=== PATIENT | male | born 1950 | race American Indian/Alaskan Native ===

== ENCOUNTER 2017-09-13 10:28 | Emergency (ER) | payer OTHER ==
[2017-09-13 10:37] VITALS: BMI 32.5
[2017-09-13 10:42] VITALS: RESP 18; O2SAT 96
[2017-09-13] MEDS ORDERED: Aspirin 325 mg EC Tablets PO STA (11:05)
[2017-09-13] MEDS ORDERED: Aspirin 325 mg EC Tablets PO ONE (11:23)
[2017-09-13 11:42] LABS: EOS % 0.1 % (0.0-4.0); HEMOGLOBIN 13.9 g/dL (12.0-18.0); MEAN CELL VOLUME 75.6 fL (80.0-94.0); WHITE BLOOD COUNT 6.2 K/uL (4.8-10.8)
[2017-09-13 11:53] LABS: BASO % 0.4 % (0.0-2.0); LYMPH # 2.5 K/uL (1.0-4.3); LYMPH % 41.1 % (20.0-40.0); MEAN CORPUSCULAR HEMOGLOBIN 25.4 pg (27.0-31.0); MEAN CORPUSCULAR HGB CONC 33.5 g/dL (33.0-37.0); MEAN PLATELET VOLUME 8.4 fL (7.2-11.7); MONO # 0.7 K/uL (0.0-0.8); MONO % 12.1 % (0.0-10.0); NEUT # 2.9 K/uL (1.8-7.0); NEUT % 46.3 % (50.0-75.0); RBC 5.48 Mil/uL (4.40-5.90); RED CELL DISTRIBUTION WIDTH 13.8 % (11.5-14.5)
[2017-09-13 11:54] LABS: ALBUMIN 4.2 g/dL (3.5-5.0); ALT/SGPT 38 U/L (21-72); AST/SGOT 46 U/L (17-59); BLOOD UREA NITROGEN 14 mg/dL (9-20); CALCIUM 9.3 mg/dl (8.6-10.4); GFR AFRICAN-AMERICAN > 60; GFR NON-AFRICAN AMERICAN > 60
[2017-09-13 12:08] LABS: B-TYPE NATRIURETIC PEPTIDE < 11.1 pg/mL (0-900)
--- NOTE | 2017-09-13 12:20 | C.PDOC ---
History Of Present Illness 67 y/o male, whose PMH includes HTN and hyperlipidemia, who presents to the emergency depratment complaining of chest pain since 2 hours ago prior to arrival. Patient reports his chest pain being associated with intermittent headaches since 5 days ago, but has currently improved. Patient also notes having an itchy rash on face, trunk, and extremities since 5 days ago and denies taking aspirin. Patient denies shortness of breath, fever, chills, cough , nausea, vomiting, diarrhea, abdominal pain, dizziness or lightheadedness. Time Seen by Provider: 09/13/17 10:50 Chief Complaint (Nursing): Chest Pain History Per: Patient History/Exam Limitations: no limitations Onset/Duration Of Symptoms: Hrs (chest pain ), Days (rash and headache) Current Symptoms Are (Timing): Still Present Quality: Sharp Associated Symptoms: denies: Nausea Modifying Factors: None Exacerbating Factors: None Alleviating Factors: None Recent travel outside of the [place]: No Past Medical History Reviewed: Historical Data, Nursing Documentation, Vital Signs Vital Signs: Last Vital Signs Temp 98.8 F 09/13/17 14:45 Pulse 86 09/13/17 14:45 Resp 18 09/13/17 14:45 BP 122/82 09/13/17 14:45 Pulse Ox 96 09/13/17 14:45 - Medical History PMH: HTN, Hyperlipidemia Family History: States: No Known Family Hx - Social History Hx Alcohol Use: Yes Hx Substance Use: No - Immunization History Hx Influenza Vaccination: (2017) Review Of Systems Constitutional: Negative for: Fever Cardiovascular: Positive for: Chest Pain Respiratory: Negative for: Shortness of Breath Gastrointestinal: Negative for: Vomiting, Abdominal Pain Genitourinary: Negative for: Dysuria, Frequency Musculoskeletal: Negative for: Shoulder Pain, Arm Pain Skin: Positive for: Rash (face, trunk, and extremities ) Neurological: Positive for: Headache. Negative for: Change in Speech, Dizziness Physical Exam - Physical Exam Appears: Well, Non-toxic, No Acute Distress Skin: Warm, Dry, Rash (scattered erythematous papular rash consistent with insect bites ) Head: Atraumatic, Normacephalic Eye(s): bilateral: Normal Inspection, PERRL, EOMI Cardiovascular: Rhythm Regular, No Murmur Respiratory: Normal Breath Sounds, No Decreased Breath Sounds, No Rales, No Rhonchi, No Wheezing Gastrointestinal/Abdominal: Normal Exam, Bowel Sounds (active), No Tenderness, No Distention, No Guarding, No Rebound Extremity: Normal ROM Neurological/Psych: Oriented x3, Normal Speech, Normal Cognition, Normal Motor, Normal Sensation ED Course And Treatment - Laboratory Results Result Diagrams: 09/13/17 11:36 09/13/17 11:36 O2 Sat by Pulse Oximetry: 96 (room air) Pulse Ox Interpretation: Normal Medical Decision Making Medical Decision Making: Impression: 67 y/o male with scattered erythematous papular rash consistent of insect bites. Plan: -- EKG -- Chest x-ray -- Ecotrin -- Reassess and disposition Progress Notes: 09/13/2017 2:30 PM The patient declines to have further medical evaluation and treatment and wishes to leave the Emergency Department. This action is against my medical advice to the patient, and with informed refusal. The patient was told that evaluation and treatment are necessary and a full explanation of the rationale was given. The risks of leaving were explained to the patient and include, but are not limited to, worsening of known or currently unknown conditions, permanent disability and from undiagnosed or untreated conditions The patient has the capacity to make this informed decision and understands the clinical situation and my explanation of the risks of leaving. The patient voluntarily accepts these risks, and a signed AMA form documenting our conversation was obtained. The patient was given the opportunity to ask questions and reconsider. The patient was encouraged to return to the Emergency Department at any time for further care. Disposition Counseled Patient/Family Regarding: Studies Performed, Diagnosis, Need For Followup, Rx Given - Disposition Disposition: AGAINST MEDICAL ADVICE Disposition Time: 14:39 Condition: STABLE Additional Instructions: YOU ARE LEAVING HOSPITAL AGAINST MEDICAL ADVISE. PLEASE FOLLOW UP WITH YOUR DOCTOR ON FRIDAY WITHOUT FAIL. YOU MAY RETURN TO HOSPITAL AT ANY TIME. Prescriptions: Triamcinolone 0.1% [Triamcinolone 0.1% Cream] 1 appful TP BID #15 g Instructions: Chest Pain, Insect Bites and Stings (DC) Forms: General Discharge Instructions, [facility] ([place]), Work Excuse - Clinical Impression Clinical Impression: Chest pain, Insect bites - Scribe Statement The provider has reviewed the documentation as recorded by the Yasmanie Scribe Attestation: Karen Collazo Attestation: All medical record entries made by the Scribe were at my direction and personally dictated by me. I have reviewed the chart and agree that the record accurately reflects my personal performance of the history, physical exam, medical decision making, and the department course for this patient. I have also personally directed, reviewed, and agree with the discharge instructions and disposition.
[2017-09-13 15:47] VITALS: BP 122/82; PULSE 86; TEMP 98.8
--- NOTE | 2017-09-13 16:48 | RAD ---
PROCEDURE: CHEST RADIOGRAPH, 1 VIEW HISTORY: chest pain COMPARISON: None available. FINDINGS: LUNGS: The lungs are well inflated and clear. PLEURA: No pneumothorax or pleural fluid seen. CARDIOVASCULAR: There is mild cardiomegaly. OSSEOUS STRUCTURES: No significant abnormalities. VISUALIZED UPPER ABDOMEN: Normal. OTHER FINDINGS: None. IMPRESSION: No active pulmonary disease.
--- NOTE | 2017-09-15 19:57 | CARD ---
APPROVED REPORT EKG Measurement Heart [id number] <Conclusion> Normal sinus rhythm T wave abnormality, consider inferior ischemia Abnormal ECG
== END 2017-09-13 14:45 | disposition left against medical advice (07) ==
LOC: C.ER 10:28
DX: R07.9 Chest pain, unspecified (principal); S00.86XA Insect bite (nonvenomous) of other part of head, initial encounter; S20.96XA Insect bite (nonvenomous) of unspecified parts of thorax, initial encounter; T14.8XXA Other injury of unspecified body region, initial encounter; W57.XXXA Bitten or stung by nonvenomous insect and other nonvenomous arthropods, initial encounter; Y92.9 Unspecified place or not applicable; I10 Essential (primary) hypertension; E78.5 Hyperlipidemia, unspecified